=== PATIENT | female | born 1975 | race Caucasian/White ===

== ENCOUNTER 2022-07-28 14:14 | Emergency (ER) | payer MEDICARE, SELFPAY ==
[2022-07-28 14:31] VITALS: BP 107/68; PULSE 91; RESP 16; TEMP 36.7; O2SAT 98
--- NOTE | 2022-07-28 14:46 | ED_ITS ---
HPI - Nausea/Vomiting/Diarrhea General: Chief complaint: Nausea/Vomiting/Diarrhea Stated complaint: N/V Time Seen by Provider: 07/28/22 14:31 History of Present Illness: Patient comes in with nausea vomiting and diarrhea for the past 24 hours. States she is also having some intermittent abdominal cramping. Denies fever but endorses chills. Denies any dysuria. States that she cannot take antiemetics because of tardive dyskinesia. She states she thinks that incorporates all antiemetics but is unsure. Associated nausea: Yes Associated symtoms: Reports nausea; Denies anxiety, change in vision, chest pain, dysuria, headache(s) or palpitations Review of Systems Const: Denies: fever(s) or body aches Eyes: Denies: change in vision or blurry vision ENMT: Denies: throat pain or odynophagia Card: Denies: chest pain or palpitations Resp: Denies: dyspnea or productive cough GI: Reports: abdominal pain, nausea, vomiting and diarrhea : Denies: flank pain or dysuria Musc: Denies: neck pain or back pain Skin/Breast: Denies: rash or pruritus Neuro: Denies: headache(s) or numbness in extremities Psych: Denies: anxiety or change in appetite Endo: Denies: polyuria or excessive sweating Physical Exam Const: COMMON NORMALS: no acute distress, patient oriented x3, healthy appearing and alert HENMT: COMMON NORMALS: normocephalic and atraumatic HEAD & SCALP: normocephalic and atraumatic OTHER: Dry mucous membranes Eye: COMMON NORMALS: Equal, round and reactive pupils present and EOMs intact bilaterally PUPIL: Yes Equal, round and reactive pupils present Neck/C-Spine: COMMON NORMALS: full ROM and supple Resp: COMMON NORMALS: normal respiratory effort, No retractions and No use of accessory muscles Cardio: COMMON NORMALS: regular rate and regular rhythm RATE: regular rate RHYTHM: regular rhythm GI: COMMON NORMALS: Normal to inspection, nondistended, normoactive bowel sounds present, Soft to palpation and non-tender PALPATION: Yes Soft to palpation Back/Pelvis: COMMON NORMALS: thoracic and lumbar spine normal to inspection and no thoracic nor lumbar tenderness Extremity: COMMON NORMALS: normal to inspection and full ROM Neuro: COMMON NORMALS: patient oriented x3 SENSORIUM/ORIENTATION: Yes alert Psych: COMMON NORMALS: mental status grossly normal and cooperative Skin: COMMON NORMALS: no rashes or lesions noted and no wounds GENERAL SKIN EXAM: no rashes or lesions noted Course Vital Signs: Vital signs: Vital Signs Temperature 98.0 F 07/28/22 14:31 Pulse Rate 97 07/28/22 15:06 Respiratory Rate 16 07/28/22 14:31 Blood Pressure 111/75 07/28/22 15:06 Pulse Oximetry 95 07/28/22 15:06 Oxygen Delivery Me thod 07/28/22 15:06 MDM - Nausea/Vomiting/Diarrhea Medical Decision Making Patient comes in with nausea vomiting and diarrhea for the past 24 hours. States she is also having some intermittent abdominal cramping. Denies fever but endorses chills. Denies any dysuria. States that she cannot take antiemetics because of tardive dyskinesia. She states she thinks that incorporates all antiemetics but is unsure. We will give her a isopropyl alcohol pad to smell to help improve her nausea, check labs, give IV fluids, and reassess. On reassessment I talked to the patient about the test results. She is tolerating p.o. Will discharge home at this time with precautions to return for worsening or changing symptoms. Lab Data 07/28/22 13:30 07/28/22 15:10 Laboratory Results WBC 13.0 10^3/uL (4.0-10.0) H 07/28/22 13:30 RBC 4.62 10^6/uL (4.1-5.3) 07/28/22 13:30 Hgb 14.5 g/dL (11.5-15.3) 07/28/22 13:30 Hct 42.5 % (37.0-47.0) 07/28/22 13:30 MCV 92.0 fl (81-99) 07/28/22 13:30 MCH 31.4 pg (28.0-34.0) 07/28/22 13:30 MCHC 34.1 g/dL (30.0-36.0) 07/28/22 13:30 RDW 13.0 % (12.1-15.1) 07/28/22 13:30 Plt Count 195 10^3/cmm (130-400) 07/28/22 13:30 MPV 11.7 fL (7.4-10.4) H 07/28/22 13:30 Neut % (Auto) 83.0 % 07/28/22 13:30 Lymph % (Auto) 9.5 % 07/28/22 13:30 [place] % (Auto) 6.6 % 07/28/22 13:30 Eos % (Auto) 0.2 % 07/28/22 13:30 Baso % (Auto) 0.3 % 07/28/22 13:30 Neut # (Auto) 10.76 10^3/uL (1.8-7.7) H 07/28/22 13:30 Lymph # (Auto) 1.2 10^3/uL (0.8-4.8) 07/28/22 13:30 [place] # (Auto) 0.9 10^3/uL (0.2-0.9) 07/28/22 13:30 Eos # (Auto) 0.0 10^3/uL (0.0-0.8) 07/28/22 13:30 Baso # (Auto) 0.0 10^3/uL (0.0-0.1) 07/28/22 13:30 Nucleated RBC % (auto) 0 % 07/28/22 13:30 Nucleated RBCs # 0.0 /100WBC 07/28/22 13:30 Sodium 136 mmol/L (136-145) 07/28/22 15:10 Potassium 3.2 mmol/L (3.5-5.1) L 07/28/22 15:10 Chloride 102 mmol/L (98-107) 07/28/22 15:10 Carbon Dioxide 24 mmol/L (22-29) 07/28/22 15:10 Anion Gap 13.2 (5-19) 07/28/22 15:10 BUN 11 mg/dL (6-20) 07/28/22 15:10 Creatinine 0.7 mg/dL (0.5-0.9) 07/28/22 15:10 GFR Calculation 89.7 mL/min (90-130) L 07/28/22 15:10 Glucose 88 mg/dL (65-115) 07/28/22 15:10 Calculated Osmolality 281 mOsm/kg (285-295) L 07/28/22 15:10 Calcium 9.0 mg/dL (8.5-10.5) 07/28/22 15:10 Total Bilirubin 0.8 mg/dL (0.15-1.2) 07/28/22 15:10 AST 24 U/L (0-32) 07/28/22 15:10 ALT 23 U/L (0-33) 07/28/22 15:10 Alkaline Phosphatase 104 U/L (35-105) 07/28/22 15:10 Total Protein 6.6 g/dL (6.6-8.7) 07/28/22 15:10 Albumin 3.9 g/dL (3.5-5.2) 07/28/22 15:10 Globulin 2.7 g/dL (1.3-4.6) 07/28/22 15:10 Lipase 21 U/L (13-60) 07/28/22 15:10 HCG, Qual Negative (Negative) 07/28/22 15:10 Discharge Plan Discharge Patient Disposition: Home Clinical Impression: Vomiting Condition: Stable Discharge Orders: Discharge ED (Routine); Ordered 07/28/22 Ordered By: Alexander Hurley Coding Level of Care Code ED [employer] Fwd Exam Comprehensive
[2022-07-28 14:56] LABS: Basophils % 0.3 %; Eosinophils % 0.2 %; Hematocrit 42.5 % (37.0-47.0); Hemoglobin 14.5 g/dL (11.5-15.3); Lymphocytes # 1.2 10^3/uL (0.8-4.8); Lymphocytes % 9.5 %; Mean Corpuscular HGB Conc 34.1 g/dL (30.0-36.0); Mean Corpuscular Hemoglobin 31.4 pg (28.0-34.0); Mean Platelet Volume 11.7 fL (7.4-10.4); Monocytes # 0.9 10^3/uL (0.2-0.9); Monocytes % 6.6 %; Neutrophils # 10.76 10^3/uL (1.8-7.7); Nucleated Red Blood Cells % 0 %; Platelet Count 195 10^3/cmm (130-400); Red Blood Count 4.62 10^6/uL (4.1-5.3)
[2022-07-28 15:06] VITALS: BP 111/75; PULSE 97; O2SAT 95
[2022-07-28] MEDS: sodium chloride 0.9% 1,000 ML 999 ML IV (15:36)
[2022-07-28 16:05] LABS: HCG, Serum Qual Negative (Negative)
[2022-07-28 16:16] LABS: Alanine Aminotransferase 23 U/L (0-33); Albumin Level 3.9 g/dL (3.5-5.2); Alkaline Phosphatase 104 U/L (35-105); Anion Gap 13.2 (5-19); Aspartate Amino Transferase 24 U/L (0-32); Blood Urea Nitrogen 11 mg/dL (6-20); Carbon Dioxide 24 mmol/L (22-29); Chloride 102 mmol/L (98-107); Globulin 2.7 g/dL (1.3-4.6); Glomerular Filtration Rate 89.7 mL/min (90-130); Glucose 88 mg/dL (65-115); Lipase 21 U/L (13-60); Osmolality Calculated 281 mOsm/kg (285-295); Potassium 3.2 mmol/L (3.5-5.1); Sodium 136 mmol/L (136-145); Total Bilirubin 0.8 mg/dL (0.15-1.2); Total Protein 6.6 g/dL (6.6-8.7)
[2022-07-28 18:15] VITALS: BP 104/67; PULSE 101; O2SAT 99
== END 2022-07-28 18:16 | disposition home or self-care (01) ==
PROVIDERS: Emergency Provider Emergency Medicine
DX: R11.11 Vomiting without nausea (principal)
CPT/HCPCS: 36415; 80053; 83690; 84703; 85025; 99283; J7030

== ENCOUNTER → 2025-03-07 11:27 | Outpatient (BNVA) | payer MEDICARE, SELFPAY | PROVIDERS: PCP Registered Nurse; Visit Provider Registered Nurse | DX: E03.9 Hypothyroidism, unspecified (principal) | CPT/HCPCS: 84439; 84443; 86800 ==

== ENCOUNTER → 2025-05-30 12:59 | Outpatient (BNVA) | payer MEDICARE, SELFPAY | PROVIDERS: Visit Provider Internal Medicine Endocrinology, Diabetes & Metabolism | DX: E07.9 Disorder of thyroid, unspecified (principal) | CPT/HCPCS: 99214 ==

== ENCOUNTER 2025-06-16 08:06 | Outpatient (CLI) | payer MEDICARE, SELFPAY ==
[2025-06-16 09:24] LABS: Alanine Aminotransferase 13 U/L (0-33); Albumin Level 4.5 g/dL (3.5-5.2); Alkaline Phosphatase 140 U/L (35-105); Anion Gap 15.3 (5-19); Aspartate Amino Transferase 17 U/L (0-32); Blood Urea Nitrogen 12 mg/dL (6-20); Calcium 9.5 mg/dL (8.5-10.5); Carbon Dioxide 25 mmol/L (22-29); Chloride 106 mmol/L (98-107); Globulin 2.6 g/dL (1.3-4.6); Glucose 92 mg/dL (65-115); Osmolality Calculated 293 mOsm/kg (285-295); Potassium 4.3 mmol/L (3.5-5.1); Sodium 142 mmol/L (136-145); Total Protein 7.1 g/dL (6.6-8.7)
== END 2025-06-16 08:07 | disposition home or self-care (01) ==
PROVIDERS: Visit Provider Internal Medicine Endocrinology, Diabetes & Metabolism
DX: E11.9 Type 2 diabetes mellitus without complications (principal); E07.9 Disorder of thyroid, unspecified
CPT/HCPCS: 80048; 80053; 82533

== ENCOUNTER 2025-07-11 08:24 | Outpatient (CLI) | payer MEDICARE, SELFPAY ==
[2025-07-11 10:12] LABS: Free T4 Free Thyroxine 1.18 ng/dL (0.82-1.77); Thyroid Stimulating Hormone 2.69 uIU/mL (0.27-4.20)
== END 2025-07-11 08:25 | disposition home or self-care (01) ==
LOC: LAB 08:25
PROVIDERS: Visit Provider Family Medicine
DX: E03.9 Hypothyroidism, unspecified (principal); E07.9 Disorder of thyroid, unspecified
CPT/HCPCS: 36415; 82533; 84439; 84443